=== PATIENT | male | born 1975 | race Caucasian/White ===

== ENCOUNTER 2016-12-09 17:04 | Emergency (ER) | payer BC ==
[2016-12-09 18:50] VITALS: BP 142/88
== END 2016-12-09 18:50 | disposition home or self-care (01) ==
LOC: ED 17:04
DX: Z76.0 Encounter for issue of repeat prescription (principal); Z88.8 Allergy status to other drugs, medicaments and biological substances; Z79.899 Other long term (current) drug therapy